=== PATIENT | male | born 1960 | race Caucasian/White ===

== ENCOUNTER 2020-08-15 17:31 | Emergency (ER) | payer OTHER ==
[2020-08-15 17:39] VITALS: BP 143/83; PULSE 110; TEMP 100.3; BMI 31.1
[2020-08-15] MEDS ORDERED: methylPREDNISolone NA SUCC 125 MG/2 ML VIAL ONE (18:06)
[2020-08-15] MEDS ORDERED: ACETAMINOPHEN 500 MG TABLET (FP) PO ONE (18:07)
[2020-08-15] MEDS ORDERED: methylPREDNISolone NA SUCC 125 MG/2 ML VIAL IM ONE (18:07)
[2020-08-15] MEDS ORDERED: ACETAMINOPHEN 325 MG TABLET (FP) ONE (18:10)
== END 2020-08-15 21:04 | disposition home or self-care (01) ==
LOC: JER 17:31
PROC: 3E023NZ Introduction of Analgesics, Hypnotics, Sedatives into Muscle, Percutaneous Approach (ICD-10-PCS; principal; 2020-08-15)
DX: J06.9 Acute upper respiratory infection, unspecified (principal); R05 Cough; U07.1 COVID-19
CPT/HCPCS: 71046-TC-FY; 99285-25; C9803; U0003

== ENCOUNTER 2020-08-16 13:27 | Emergency (ER) | payer OTHER ==
[2020-08-16 14:14] VITALS: BMI 31.1
[2020-08-16] MEDS ORDERED: ACETAMINOPHEN 1000 MG/100 ML VIAL (NON FORMULARY) IVPB ONE (15:21)
[2020-08-16] MEDS ORDERED: LACTATED RINGERS SOLUTION 1000 ML INFUS.BAG IV ONE (15:21)
[2020-08-16] MEDS ORDERED: ACETAMINOPHEN INJECTION 100 ML IVPB ONE (15:28)
[2020-08-16 15:45] LABS: BASO % 0.3 % (0-2.0); HEMATOCRIT 48.3 % (35.4-49); HEMOGLOBIN 15.9 GM/dL (11.7-16.9); LYMPH % 7.2 % (8-40); MCH 28.5 pg (25.7-33.7); MCHC 32.8 g/dl (32.0-35.9); MEAN CELL VOLUME 86.8 fl (80-96); MEAN PLT VOLUME 7.4 fl (7.5-11.1); MONO % 9.1 % (3.8-10.2); NEUT % 83.4 % (42.8-82.8); PLATELET COUNT 281 K/MM3 (134-434); RBC 5.57 M/mm3 (4.00-5.60); RDW 14.2 % (11.9-15.9); WHITE BLOOD COUNT 6.2 K/mm3 (4.0-10.0)
[2020-08-16 16:13] LABS: CHLORIDE 100 mmol/L (98-107); POTASSIUM 3.3 mmol/L (3.5-5.1); SODIUM 136 mmol/L (136-145)
[2020-08-16 16:15] LABS: CALCIUM 7.9 mg/dL (8.5-10.1)
[2020-08-16 16:16] LABS: ALBUMIN 3.3 g/dl (3.4-5.0); ANION GAP 10 MMOL/L (8-16); BLOOD UREA NITROGEN 11.4 mg/dL (7-18); CO2 25 mmol/L (21-32); GLUCOSE,RANDOM 163 mg/dL (74-106)
[2020-08-16 16:19] LABS: CREATININE 1.1 mg/dL (0.55-1.3); SGOT/AST 37 U/L (15-37); SGPT/ALT 38 U/L (13-61)
[2020-08-16 16:20] LABS: BILIRUBIN,TOTAL 0.6 mg/dL (0.2-1); TOT PROT 7.4 g/dl (6.4-8.2)
[2020-08-16 16:22] LABS: ALK PHOS 75 U/L (45-117)
[2020-08-16 19:06] VITALS: BP 137/86; PULSE 98; TEMP 98
== END 2020-08-16 19:00 | disposition home or self-care (01) ==
LOC: JER 13:27
PROC: 3E0333Z Introduction of Anti-inflammatory into Peripheral Vein, Percutaneous Approach (ICD-10-PCS; principal; 2020-08-16)
DX: U07.1 COVID-19 (principal)
CPT/HCPCS: 36415; 71045-TC-FY; 80053; 84484; 85025; 93005; 93010; 99285-25; J0131

== ENCOUNTER 2020-09-01 16:04 | Emergency (ER) | payer OTHER ==
[2020-09-01 16:28] VITALS: BP 132/86; PULSE 107; TEMP 98.4; BMI 31.4
== END 2020-09-01 17:45 | disposition home or self-care (01) ==
LOC: JER 16:04
DX: F41.9 Anxiety disorder, unspecified (principal); J02.9 Acute pharyngitis, unspecified; Z03.818 Encounter for observation for suspected exposure to other biological agents ruled out
CPT/HCPCS: 99283-25; C9803; U0003

== ENCOUNTER 2021-02-08 08:44 | Emergency (ER) | payer OTHER ==
[2021-02-08 08:53] VITALS: BP 128/76; PULSE 72; TEMP 97.5; BMI 31.4
[2021-02-08] MEDS ORDERED: IBUPROFEN 400 MG TABLET (FP) PO ONE ×2 (09:29→09:32)
== END 2021-02-08 10:10 | disposition home or self-care (01) ==
LOC: JER 08:44
DX: M54.9 Dorsalgia, unspecified (principal); M41.24 Other idiopathic scoliosis, thoracic region
CPT/HCPCS: 72070-TC-FY; 99284-25

== ENCOUNTER 2022-07-09 16:20 | Emergency (ER) | payer OTHER ==
[2022-07-09 16:27] VITALS: BP 144/87; PULSE 95; RESP 16; TEMP 97.6; BMI 30.7
[2022-07-09] MEDS ORDERED: ACETAMINOPHEN 1000 MG/100 ML BAG IVPB ONE (17:03)
[2022-07-09] MEDS ORDERED: SODIUM CHLORIDE 1,000 ML IV STA (17:03)
[2022-07-09 17:43] LABS: URINE APPEARANCE CLEAR; URINE BILIRUBIN NEGATIVE (NEGATIVE); URINE COLOR YELLOW; URINE GLUCOSE (UA) NEGATIVE (NEGATIVE); URINE KETONE NEGATIVE (NEGATIVE); URINE LEUK ESTERASE NEGATIVE (NEGATIVE); URINE NITRITE NEGATIVE (NEGATIVE); URINE PROTEIN NEGATIVE (NEGATIVE)
[2022-07-09] MEDS ORDERED: ACETAMINOPHEN INJECTION 100 ML IVPB ONE (17:43)
[2022-07-09 18:04] LABS: BASO % 0.6 % (0-2.0); EOS % 2.5 % (0-4.5); HEMATOCRIT 42.9 % (35.4-49); HEMOGLOBIN 14.4 GM/dL (11.7-16.9); LYMPH % 28.8 % (8-40); MCH 29.2 pg (25.7-33.7); MCHC 33.5 g/dl (32.0-35.9); MEAN CELL VOLUME 87.3 fl (80-96); MEAN PLT VOLUME 7.3 fl (7.5-11.1); MONO % 8.9 % (3.8-10.2); NEUT % 59.2 % (42.8-82.8); PLATELET COUNT 239 10^3/uL (134-434); RBC 4.91 M/mm3 (4.00-5.60); RDW 14.2 % (11.9-15.9); WHITE BLOOD COUNT 6.6 K/mm3 (4.0-10.0)
[2022-07-09 18:20] LABS: CALCIUM 8.5 mg/dL (8.5-10.1)
[2022-07-09 18:21] LABS: ALBUMIN 3.6 g/dl (3.4-5.0)
[2022-07-09 18:23] LABS: CREATININE 0.7 mg/dL (0.55-1.3)
[2022-07-09 18:25] LABS: BILIRUBIN,TOTAL 0.3 mg/dL (0.2-1)
== END 2022-07-09 20:14 | disposition home or self-care (01) ==
LOC: JER 16:20
PROC: 3E033NZ Introduction of Analgesics, Hypnotics, Sedatives into Peripheral Vein, Percutaneous Approach (ICD-10-PCS; principal; 2022-07-09)
PROC: 3E0337Z Introduction of Electrolytic and Water Balance Substance into Peripheral Vein, Percutaneous Approach (ICD-10-PCS; 2022-07-09)
DX: R10.9 Unspecified abdominal pain (principal)
CPT/HCPCS: 36415; 74177-TC; 80053; 81003; 83690; 85025; 87086; 99285-25; Q9967

== ENCOUNTER 2022-07-11 06:15 | Emergency (ER) | payer OTHER ==
[2022-07-11 06:27] VITALS: BP 158/88; PULSE 88; RESP 20; TEMP 98.6; BMI 32.8
[2022-07-11] MEDS ORDERED: METOCLOPRAMIDE HCL INJECTION 10 MG/2 ML VIAL IVPUSH ONE (08:38)
[2022-07-11] MEDS ORDERED: ACETAMINOPHEN 325 MG TABLET (FP) PO ONE (08:40)
[2022-07-11] MEDS ORDERED: ACETAMINOPHEN 325 MG TABLET (FP) ONE (08:44)
[2022-07-11 08:57] LABS: EPI CELLS 0 /uL (0-25.1); HYALINE CASTS 0 /uL (0-3.1); PH,URINE 6.5 (5.0-8.0); URINE APPEARANCE CLEAR; URINE BILIRUBIN NEGATIVE (NEGATIVE); URINE COLOR DK YELLOW; URINE GLUCOSE (UA) NEGATIVE (NEGATIVE); URINE KETONE NEGATIVE (NEGATIVE); URINE LEUK ESTERASE TRACE (NEGATIVE); URINE NITRITE POSITIVE (NEGATIVE); URINE PROTEIN NEGATIVE (NEGATIVE); URINE RBC 12 /uL (0-23.9); URINE WBC 0 /uL (0-25.8)
[2022-07-11] MEDS ORDERED: SULFAMETHOXAZOLE/TRIMETHOPRIM 800MG/160MG D.S. TABLET PO ONE (09:30)
[2022-07-11] MEDS ORDERED: SULFAMETHOXAZOLE/TRIMETHOPRIM 800MG/160MG D.S. TABLET ONE (09:34)
== END 2022-07-11 09:51 | disposition home or self-care (01) ==
LOC: JER 06:15
PROC: 3E033NZ Introduction of Analgesics, Hypnotics, Sedatives into Peripheral Vein, Percutaneous Approach (ICD-10-PCS; principal; 2022-07-11)
DX: N30.00 Acute cystitis without hematuria (principal)
CPT/HCPCS: 81003; 87086; 99285-25

== ENCOUNTER 2022-07-16 18:47 | Emergency (ER) | payer OTHER ==
[2022-07-16 18:56] VITALS: BP 149/80; PULSE 101; RESP 18; TEMP 98.2; BMI 31.4
[2022-07-16 20:53] LABS: EPI CELLS 2 /uL (0-25.1); HYALINE CASTS 0 /uL (0-3.1); URINE APPEARANCE CLEAR; URINE BACTERIA 2 /uL (0-1359); URINE BILIRUBIN NEGATIVE (NEGATIVE); URINE COLOR YELLOW; URINE GLUCOSE (UA) 2+ (NEGATIVE); URINE KETONE TRACE (NEGATIVE); URINE LEUK ESTERASE NEGATIVE (NEGATIVE); URINE NITRITE NEGATIVE (NEGATIVE); URINE PROTEIN NEGATIVE (NEGATIVE); URINE RBC 68 /uL (0-23.9); URINE WBC 2 /uL (0-25.8)
== END 2022-07-16 22:42 | disposition home or self-care (01) ==
LOC: JERFT 18:47 → JER 18:47 → JERFT 22:42
DX: R30.0 Dysuria (principal); R10.2 Pelvic and perineal pain
CPT/HCPCS: 74176-TC; 81003; 87086; 99284-25